=== PATIENT | male | born 1950 | race Caucasian/White ===

== ENCOUNTER → 2018-09-07 | Day surgery (SDC) | payer MEDICARE ==
[2018-09-02 12:39] LABS: INR 1.01; PARTIAL THROMBOPLASTIN TIME 29.2 seconds (23.8-35.5); PROTHROMBIN TIME 13.8 seconds (11.9-14.5)
[~2018-09-07] MED LIST: FENTANYL CITRATE/PF 100MCG/2 ML INJ ONE; HYOSCYAMINE 0.125 MG TAB ONE; LEXAPRO10 MG PO; MIDAZOLAM HCL 2 MG/2 ML VIAL ONE; PROPOFOL IV EMULSION 10 MG/ML 20 ML VIAL ONE; PROPOFOL IV EMULSION 10 MG/ML 50 ML VIAL ONE
--- NOTE | 2018-09-07 10:30 | NUR ---
SPIRITUAL CARE - Pre-Surgery Assessment: Pt in bed. Pt reported supportive attention from family and friends. Intervention: I provided pastoral presence, hospitality, and sympathetic listening. I acquainted pt with availability of safety council director while hospitalized. Outcome: Pt expressed appreciation for visit. No need for follow up indicated at this time. [facility] Spiritual Care Department O: [phone] Pager: [phone] ([phone] number calling from)
[2018-09-07 10:35] LABS: BASOPHILS % 0.3 % (0.0-1.0); EOSINOPHILS % 0.4 % (0.0-6.0); HEMOGLOBIN 16.1 g/dL (14.0-18.0); LYMPHOCYTES # (AUTO) 1.8 (1.0-3.2); LYMPHOCYTES % 23.5 % (18.0-39.1); MEAN CORPUSCULAR HEMOGLOBIN 30.5 pg (28-32); MEAN CORPUSCULAR HGB CONC 32.9 g/dL (31-35); MEAN CORPUSCULAR VOLUME 92.8 fL (81-99); MONOCYTES # (AUTO) 0.6 (0.2-0.8); MONOCYTES % 8.2 % (4.4-11.3); NEUTROPHILS # (AUTO) 5.2 (2.1-6.9); NEUTROPHILS % 67.1 % (38.7-80.0); PLATELET COUNT 212 x10e3/uL (140-360); RED BLOOD COUNT 5.28 x10e6/uL (4.3-5.7); RED CELL DISTRIBUTION WIDTH 13.4 % (11.7-14.4)
[2018-09-07 10:49] LABS: ALANINE AMINOTRANSFERASE 121 IU/L (0-55); ALBUMIN 4.6 g/dL (3.5-5.0); ALKALINE PHOSPHATASE 72 IU/L (40-150); ANION GAP 14.1 mmol/L (8-16); BLOOD UREA NITROGEN 22 mg/dL (7-26); BUN/CREATININE RATIO 24 (6-25); CALCIUM 9.9 mg/dL (8.4-10.2); CARBON DIOXIDE 21 mmol/L (22-29); CHLORIDE 109 mmol/L (98-107); CREATININE, SERUM 0.93 mg/dL (0.72-1.25); EST GLOMERULAR FILTRATION RATE > 60 ML/MIN (60-); GLUCOSE 115 mg/dL (74-118); POTASSIUM 4.1 mmol/L (3.5-5.1); SODIUM 140 mmol/L (136-145)
[2018-09-07 14:20] VITALS: BP 146/98
--- NOTE | 2018-09-07 14:33 | Operative Report ---
DATE OF PROCEDURE: 09/07/2018 SURGEON: Kentrell Corona MD PROCEDURE: Colonoscopy and polypectomy. INDICATION FOR COLONOSCOPY: Colorectal cancer screening. MEDICATIONS: The patient was done under MAC, please see anesthesiologist's note. PROCEDURE IN DETAIL: With the patient in left lateral decubitus position, a flexible fiberoptic Olympus colonoscope was inserted into the rectum with ease and advanced all the way to the cecum. One polyp was snared from the cecum. The scope was then withdrawn slowly. A minute polyp was hot biopsied from the ascending colon. The transverse appeared to be within normal limits. Diverticular disease was noted to involve the distal descending and the sigmoid colon. One polyp was snared from the sigmoid colon. The rectum appeared to be within normal limits. The scope was then retroflexed into the distal rectum and small internal hemorrhoids were noted, none of which was actively bleeding. The scope was then straightened out, it was subsequently withdrawn. The patient tolerated the procedure well. IMPRESSION: 1. Cecal polyp, snared. 2. Ascending colon polyp, hot biopsied. 3. Diverticulosis. 4. Sigmoid colon polyp, snared. 5. Internal hemorrhoids, none actively bleeding. PLAN: Follow up histology. Initiate high-fiber, low-fat diet. Initiate high-fiber supplement. The patient might benefit from a followup colonoscopy in 5 years. MD STEPHENIE Lopez/JASON /[id number] cc: Jude Steward DO
== END | disposition home or self-care (01) ==
LOC: OR 09:17
PROVIDERS: ATTEND Internal Medicine Gastroenterology
DX: Z12.11 Encounter for screening for malignant neoplasm of colon (principal); D12.0 Benign neoplasm of cecum; D12.2 Benign neoplasm of ascending colon; D12.5 Benign neoplasm of sigmoid colon; K57.30 Diverticulosis of large intestine without perforation or abscess without bleeding; K64.8 Other hemorrhoids; R10.9 Unspecified abdominal pain; B18.2 Chronic viral hepatitis C; H91.90 Unspecified hearing loss, unspecified ear; F41.9 Anxiety disorder, unspecified; Z01.810 Encounter for preprocedural cardiovascular examination; Z01.812 Encounter for preprocedural laboratory examination; Z68.30 Body mass index [BMI] 30.0-30.9, adult
CPT/HCPCS: 36415 ×2; 45384; 45385; 80053; 85025; 85610; 85730; 88305; 93005; J2250; J2704 ×2; 45378; J3010

== ENCOUNTER → 2018-09-09 | Outpatient (CLI) | payer MEDICARE ==
[~2018-09-09] MED LIST changes: -FENTANYL CITRATE/PF 100MCG/2 ML INJ ONE; -HYOSCYAMINE 0.125 MG TAB ONE; -MIDAZOLAM HCL 2 MG/2 ML VIAL ONE; -PROPOFOL IV EMULSION 10 MG/ML 20 ML VIAL ONE; -PROPOFOL IV EMULSION 10 MG/ML 50 ML VIAL ONE
--- NOTE | 2018-09-09 09:22 | Diagnostic Imaging Report ---
PROCEDURE:ABDOMINAL ULTRASOUND COMPARISON:None. INDICATIONS:LEFT ABDOMINAL PAIN FINDINGS: Liver: 13.7 cm in length in the right midclavicular line. Normal hepatic parenchymal echogenicity. No focal mass. Main portal vein: 1.1 cm in caliber. Hepatopetal flow. Gallbladder: Poorly visualized and possibly collapsed. No shadowing calculi. Common Bile Duct: 0.4 cm in caliber. No echogenic filling defect. Sonographic Garcia's sign: Reported as negative. Right kidney: 10.8 cm in length. No solid or cystic mass, echogenic calculi, or hydronephrosis. Normal parenchymal echogenicity. Left kidney: 11.3 cm in length. No solid or cystic mass, echogenic calculi, or hydronephrosis. Normal parenchymal echogenicity. Spleen: 11.9 cm in length. Uniform parenchymal echotexture. Pancreas: The visualized portions of the pancreas are normal. Inferior vena cava: Patent. Aorta: Non-aneurysmal. Ascites: None. CONCLUSION: Poor visualization of the gallbladder, which may be secondary to collapse. Otherwise unremarkable abdominal ultrasound. Dictated by: Jude Gerard M.D. on 09/09/2018 at 9:25 Electronically approved by: Jude Gerard M.D. on 09/09/2018 at 9:25
== END ==
LOC: US 07:20
PROVIDERS: ATTEND Internal Medicine Gastroenterology
DX: R10.9 Unspecified abdominal pain (principal)
CPT/HCPCS: 76700

== ENCOUNTER → 2018-10-13 | Outpatient (CLI) | payer MEDICARE ==
--- NOTE | 2018-10-13 16:21 | Diagnostic Imaging Report ---
HEPATOBILIARY SCAN INDICATION: Abdominal pain; hepatitis C; collapsed gallbladder Report: Following the administration of 6.6 mCi of Tc-99m mebrofenin, dynamic images of the abdomen in the anterior projection were obtained through 60 minutes. Additional static images were obtained at 2 and 3 hours. Perfusion of the liver is normal. The liver appears slightly reduced in size. Extraction of tracer from the blood pool by the liver parenchyma is minimally prolonged. Tracer appears promptly with in the biliary tract. Tracer is seen in the small bowel by 10 minutes post injection of the radiotracer. The gallbladder does not fill during the initial 75-minute dynamic sequence and does not fill through 3 hours. Impression: Absence of filling of the gallbladder through 3 hours post administration of the radiotracer supports the clinical diagnosis of chronic and/or acute cholecystitis. Signed by: Dr. Edelmira Colin M.D. on 10/13/2018 4:18 PM
== END ==
LOC: NM 08:07
PROVIDERS: ATTEND Internal Medicine Gastroenterology
DX: R10.9 Unspecified abdominal pain (principal); B19.20 Unspecified viral hepatitis C without hepatic coma; K82.9 Disease of gallbladder, unspecified
CPT/HCPCS: 78227; A9537

== ENCOUNTER 2019-11-07 18:43 | Observation (INO) | payer MEDICARE ==
[~2019-11-07] VITALS: Ht 180.3 cm; Wt 102.1 kg
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
[2019-11-07] MEDS ORDERED: NITROGLYCERIN 2% OINT 1 GM PKT TOP ONE (19:15)
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
[2019-11-07 19:30] LABS: BASOPHILS % 0.3 % (0.0-1.0); EOSINOPHILS # (AUTO) 0.1 (0.0-0.4); EOSINOPHILS % 0.9 % (0.0-6.0); HEMATOCRIT 46.7 % (38.2-49.6); HEMOGLOBIN 15.6 g/dL (14.0-18.0); LYMPHOCYTES # (AUTO) 2.4 (1.0-3.2); LYMPHOCYTES % 20.5 % (18.0-39.1); MEAN CORPUSCULAR HEMOGLOBIN 30.2 pg (28-32); MEAN CORPUSCULAR HGB CONC 33.4 g/dL (31-35); MEAN CORPUSCULAR VOLUME 90.3 fL (81-99); MONOCYTES % 8.3 % (4.4-11.3); NEUTROPHILS # (AUTO) 8.2 (2.1-6.9); NEUTROPHILS % 69.6 % (38.7-80.0); PLATELET COUNT 226 x10e3/uL (140-360); RED BLOOD COUNT 5.17 x10e6/uL (4.3-5.7); RED CELL DISTRIBUTION WIDTH 13.2 % (11.7-14.4)
[2019-11-07 19:42] LABS: ALANINE AMINOTRANSFERASE 49 IU/L (0-55); ALBUMIN 4.7 g/dL (3.5-5.0); ALBUMIN/GLOBULIN RATIO 1.3 (0.8-2.0); ALKALINE PHOSPHATASE 88 IU/L (40-150); ANION GAP 17.1 mmol/L (8-16); BLOOD UREA NITROGEN 17 mg/dL (7-26); BUN/CREATININE RATIO 17 (6-25); CARBON DIOXIDE 21 mmol/L (22-29); CHLORIDE 104 mmol/L (98-107); CREATINE KINASE 179 IU/L (30-200); CREATININE, SERUM 0.98 mg/dL (0.72-1.25); EST GLOMERULAR FILTRATION RATE > 60 ML/MIN (60-); GLUCOSE 103 mg/dL (74-118); POTASSIUM 4.1 mmol/L (3.5-5.1); SODIUM 138 mmol/L (136-145)
--- NOTE | 2019-11-07 20:03 | Diagnostic Imaging Report ---
EXAMINATION: CHEST SINGLE (PORTABLE) INDICATION: CHEST PAIN COMPARISON: None FINDINGS: The heart is not enlarged. The pulmonary vasculature is within normal limits. Bandlike opacity in the mid left lung. Otherwise, no consolidation. No sizable pleural effusion. No pneumothorax. IMPRESSION: 1. Bandlike opacity in the mid left lung favored represent subsegmental atelectasis or scarring. 2. Otherwise no acute process. Signed by: Wilfredo Moreira MD on 11/07/2019 8:00 PM
[2019-11-07] MEDS ORDERED: ONDANSETRON HCL INJ 2MG/ML 2ML 2 MG/ML VIAL IV PRN (21:15)
[2019-11-07] MEDS ORDERED: SODIUM CHLORIDE FLUSH 10 ML SYR INJ PRN (21:15)
[2019-11-07] MEDS ORDERED: MORPHINE SULFATE 2 MG/ML SYR 1ML IV PRN (21:15)
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
[2019-11-07 22:35] VITALS: BP 125/80
[2019-11-07 22:42] VITALS: BP 125/80
--- NOTE | 2019-11-07 22:45 | NUR ---
patient is a new admit that arrived from the ER. patient is awake and talking. patient has been assisted into the bed. bed is in the lowest position and call light is within reach. will continue to monitor patient.
[2019-11-07] MEDS: NITROGLYCERIN 2% OINT 1 GM PKT TOP SCH (22:58)
[2019-11-07 23:02] VITALS: BP 125/80
[2019-11-08] VITALS (7 sets, daily range): BP systolic 104–130; BP diastolic 71–82
[2019-11-08 05:31] LABS: BASOPHILS % 0.3 % (0.0-1.0); EOSINOPHILS # (AUTO) 0.1 (0.0-0.4); EOSINOPHILS % 0.9 % (0.0-6.0); HEMATOCRIT 43.6 % (38.2-49.6); HEMOGLOBIN 14.4 g/dL (14.0-18.0); LYMPHOCYTES # (AUTO) 1.6 (1.0-3.2); LYMPHOCYTES % 20.6 % (18.0-39.1); MEAN CORPUSCULAR HEMOGLOBIN 29.7 pg (28-32); MEAN CORPUSCULAR VOLUME 89.9 fL (81-99); MONOCYTES # (AUTO) 0.8 (0.2-0.8); MONOCYTES % 10.3 % (4.4-11.3); NEUTROPHILS # (AUTO) 5.4 (2.1-6.9); NEUTROPHILS % 67.6 % (38.7-80.0); PLATELET COUNT 196 x10e3/uL (140-360); RED BLOOD COUNT 4.85 x10e6/uL (4.3-5.7); RED CELL DISTRIBUTION WIDTH 13.2 % (11.7-14.4)
[2019-11-08] MEDS: NITROGLYCERIN 2% OINT 1 GM PKT TOP SCH ×3 (05:38→12:30)
--- NOTE | 2019-11-08 05:41 | NUR ---
patient is complaining of a headache. INTAKE NURSE notified. received new orders for acetaminophen 650mg po q six hours.
[2019-11-08] MEDS ORDERED: ACETAMINOPHEN 325 MG TAB PO PRN (05:45)
[2019-11-08 05:54] LABS: ALANINE AMINOTRANSFERASE 40 IU/L (0-55); ALBUMIN 3.9 g/dL (3.5-5.0); ALBUMIN/GLOBULIN RATIO 1.2 (0.8-2.0); ALKALINE PHOSPHATASE 77 IU/L (40-150); ANION GAP 15.2 mmol/L (8-16); BLOOD UREA NITROGEN 16 mg/dL (7-26); BUN/CREATININE RATIO 19 (6-25); CARBON DIOXIDE 22 mmol/L (22-29); CHLORIDE 104 mmol/L (98-107); CHOL/HDL RATIO 3.9 (3.9-4.7); CHOLESTEROL 157 MD/DL (0-199); CREATININE, SERUM 0.84 mg/dL (0.72-1.25); EST GLOMERULAR FILTRATION RATE > 60 ML/MIN (60-); GLUCOSE 124 mg/dL (74-118); HDL CHOLESTEROL 40 MG/DL (40-60); LDL CHOLESTEROL 102 MG/DL (60-130); POTASSIUM 4.2 mmol/L (3.5-5.1); SODIUM 137 mmol/L (136-145); TRIGLYCERIDES 74 MG/DL (0-149)
--- NOTE | 2019-11-08 07:00 | NUR ---
RECEIVED PATIENT AWAKE RESTING IN BED NO S/S OF DISTRESS. BED LOW, WHEELS LOCKED, SIDE RAILS X2. CALL LIGHT IN REACH WILL CONTINUE TO MONITOR PATIENT.
--- NOTE | 2019-11-08 07:40 | Diagnostic Imaging Report ---
EXAMINATION: CHEST 2 VIEWS INDICATION: CHEST PAIN COMPARISON: None FINDINGS: The heart is not enlarged. Pulmonary vasculature is within normal limits. Redemonstrated bandlike opacity in the mid left lung likely correlates with bandlike density in the lingula on lateral view. No pleural effusion. No pneumothorax. IMPRESSION: Subsegmental lingular atelectasis versus scarring. No consolidation. Signed by: Wilfredo Moreira MD on 11/08/2019 7:37 AM
[2019-11-08] MEDS ORDERED: ASPIRIN 81 MG ENTERIC COATED PO SCH (09:00)
--- NOTE | 2019-11-08 09:09 | NUR ---
REPORT GIVEN TO NIGEL BALDERAS.
--- NOTE | 2019-11-08 12:30 | NUR ---
PT TO TRANSFER FROM MED SURG 1 ROOM 111 TO 284. TELEPHONE REPORT RECEIVED FROM GAGE BALDERAS. PT RECEIVED SITTING UP IN CHAIR IN NO ACUTE DISTRESS. PT IS ABLE TO MAKE NEEDS KNOWN AND STATES NO FURTHER NEEDS. PT WAS EDUCATED ON FALL RISK PRECAUTIONS AND VERBALIZED UNDERSTANDING. BELONGINGS PLACED NEARBY. WILL CONTINUE TO MONITOR.
[2019-11-08 15:22] LABS: CREATINE KINASE MB 1.2 ng/mL (0-5.0)
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
== END 2019-11-08 16:51 | disposition left against medical advice (07) ==
LOC: ER 19:25 → ERHOLD 22:27 → MED/SURG 22:31 → MED/SURG3 11-08 10:26
PROVIDERS: ADMIT Internal Medicine; ATTEND Internal Medicine
DX: R07.9 Chest pain, unspecified (principal); Z86.19 Personal history of other infectious and parasitic diseases; F41.9 Anxiety disorder, unspecified; Z82.49 Family history of ischemic heart disease and other diseases of the circulatory system; Z11.59 Encounter for screening for other viral diseases
CPT/HCPCS: 36415 ×2; 71045; 71046; 80053 ×2; 80061; 82550 ×2; 82553 ×2; 83880; 84484 ×2; 85025 ×2; 85379; 93005; 93306; 99284; G0378 ×2; J2270; J2405; U0002